=== PATIENT | female | born 1940 | race Caucasian/White ===

== ENCOUNTER 2016-10-06 16:58 | Outpatient (CLI) | payer MEDICARE, OTHER | END 2016-10-06 16:59 | disposition home or self-care (01) | DX: M25.552 Pain in left hip (principal) ==

== ENCOUNTER 2017-06-16 16:21 | Outpatient (CLI) | payer MEDICARE, OTHER ==
--- NOTE | 2017-06-17 09:34 | XRAY Report ---
RIGHT KNEE: 06/16/2017 COMPARISON: None. INDICATION: Right knee pain. TECHNIQUE: Three views of the right knee. FINDINGS: There are mild tricompartmental degenerative changes. Alignment appears anatomic. No acu te bone findings are seen. No effusion. IMPRESSION: MILD TRICOMPARTMENTAL OSTEOARTHRITIS. JOB #: [id number] EXT JOB #:[id number]
== END 2017-06-16 16:22 | disposition home or self-care (01) ==
LOC: DI 16:21
PROVIDERS: ATTEND Family Medicine
DX: M17.11 Unilateral primary osteoarthritis, right knee (principal)